=== PATIENT | female | born 2005 | race American Indian/Alaskan Native ===

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

== ENCOUNTER 2025-02-12 13:25 | Emergency (ER) | payer SELFPAY ==
[2025-02-12 16:04] VITALS: BP 124/74; PULSE 70
== END 2025-02-12 16:00 | disposition home or self-care (01) ==
LOC: DL.ED 13:25
DX: S05.12XA Contusion of eyeball and orbital tissues, left eye, initial encounter (principal); S05.02XA Injury of conjunctiva and corneal abrasion without foreign body, left eye, initial encounter; Z86.16 Personal history of COVID-19; Y04.8XXA Assault by other bodily force, initial encounter; Y93.89 Activity, other specified
CPT/HCPCS: 70486; 99283; 99284

== ENCOUNTER 2025-06-09 03:20 | Emergency (ER) | payer MEDICAID ==
[2025-06-09 02:56] LABS: BASOPHILS PERCENT AUTO 0.1 % (0.0-1.0); EOSINOPHILS PERCENT AUTO 1.0 % (1.0-3.0); LYMPHOCYTES PERCENT AUTO 29.8 % (20.5-50.1); MONOCYTES PERCENT AUTO 4.7 % (2-8); NEUTROPHILS PERCENT AUTO 64.4 % (42.2-75.2); PLATELET COUNT,PLT 361 10^3/uL (150-450); RED BLOOD CELL COUNT 5.01 10^6/uL (4.2-5.4); WHITE BLOOD CELL COUNT,WBC 12.2 10^3/uL (5.0-10.0)
[2025-06-09] MEDS: Lactated Ringers 1,000 ML IV ONE (03:04)
[2025-06-09 03:09] LABS: A/G RATIO 0.9; ALANINE AMINOTRANSFERASE,ALT 33 U/L (14-59); ASPARTATE AMNIOTRANSFERASE,AST 21 U/L (15-37); BILIRUBIN TOTAL 1.1 mg/dL (0.2-1.0); BLOOD UREA NITROGEN,BUN 10 mg/dL (7-18); CARBON DIOXIDE,CO2 18 mmol/L (21-32); CHLORIDE,CL 99 mmol/L (98-107); CREATININE 1.05 mg/dL (0.55-1.02); GLUCOSE RANDOM 147 mg/dL (70-99); POTASSIUM,K 3.0 mmol/L (3.5-5.1); PROTEIN TOTAL,TP 9.1 g/dL (6.4-8.2); SODIUM,NA 137 mmol/L (136-145)
[2025-06-09 03:10] LABS: ESTIMATED GFR 79 mL/min (>=60); ETHANOL BLOOD MEDICAL < 3 mg/dL (0)
[2025-06-09 04:06] LABS: APPEARANCE,URINE CLEAR (CLEAR); GLUCOSE,URINE NEGATIVE (NEGATIVE); OCCULT BLOOD,URINE TRACE-INTACT (NEGATIVE)
[2025-06-09 04:10] LABS: AMPHETAMINES,URINE NEGATIVE (NEGATIVE); BARBITURATES,URINE NEGATIVE (NEGATIVE); MDMA (ECSTASY), URINE NEGATIVE (NEGATIVE); METHAMPHETAMINES,URINE POSITIVE (NEGATIVE); OPIATES,URINE NEGATIVE (NEGATIVE); OXYCODONE,URINE NEGATIVE (NEGATIVE); PHENCYCLIDINE,URINE NEGATIVE (NEGATIVE); TCA,URINE NEGATIVE (NEGATIVE)
[2025-06-09 04:21] LABS: SQUAMOUS EPITHELIAL CELLS,UR FEW /HPF (NOT SEEN)
[2025-06-09 04:55] VITALS: BP 138/106; PULSE 87
[2025-06-09] MEDS: Potassium Chloride 10% 20 MEQ/15 ML Soln 15 ML UD Cup PO ONE (05:17)
== END 2025-06-09 05:30 | disposition home or self-care (01) ==
LOC: DL.ED 03:20
DX: F15.10 Other stimulant abuse, uncomplicated (principal); F10.10 Alcohol abuse, uncomplicated; Z86.16 Personal history of COVID-19
CPT/HCPCS: 36415; 80053; 80305-QW; 80307; 81001; 81025; 83735; 84484; 85025; 93005; 93010; 96360; 99284; 99284-25; A9270-GY; J7120

== ENCOUNTER 2025-07-05 11:46 | Emergency (ER) | payer MEDICAID ==
[2025-07-05] MEDS ORDERED: Sodium Chloride 0.9% 10 ML Syringe FLUSH PRN (11:53)
[2025-07-05 12:07] LABS: BASOPHILS PERCENT AUTO 0.1 % (0.0-1.0); EOSINOPHILS PERCENT AUTO 0.2 % (1.0-3.0); LYMPHOCYTES PERCENT AUTO 11.2 % (20.5-50.1); MONOCYTES PERCENT AUTO 5.7 % (2-8); NEUTROPHILS PERCENT AUTO 82.8 % (42.2-75.2); PLATELET COUNT,PLT 344 10^3/uL (150-450); RED BLOOD CELL COUNT 4.48 10^6/uL (4.2-5.4); WHITE BLOOD CELL COUNT,WBC 10.7 10^3/uL (5.0-10.0)
[2025-07-05] MEDS: Iopamidol 612 MG/ML 100 ML Bottle IVPUSH ONE (12:22)
[2025-07-05 12:25] LABS: A/G RATIO 1.0; ALANINE AMINOTRANSFERASE,ALT 50 U/L (14-59); ASPARTATE AMNIOTRANSFERASE,AST 37 U/L (15-37); BILIRUBIN TOTAL 0.5 mg/dL (0.2-1.0); BLOOD UREA NITROGEN,BUN 9 mg/dL (7-18); CARBON DIOXIDE,CO2 17 mmol/L (21-32); CHLORIDE,CL 103 mmol/L (98-107); CREATININE 0.96 mg/dL (0.55-1.02); EST CRCL DRUG DOSING (CG) 74.55 mL/min; GLUCOSE RANDOM 112 mg/dL (70-99); POTASSIUM,K 3.4 mmol/L (3.5-5.1); PROTEIN TOTAL,TP 7.3 g/dL (6.4-8.2); SODIUM,NA 139 mmol/L (136-145)
[2025-07-05] MEDS: Midazolam 1 MG/ML 2 ML SDV IVPUSH ONE (12:27)
[2025-07-05] MEDS: LORazepam 2 MG/ML SDV IVPUSH ONE (12:28)
[2025-07-05 12:29] LABS: ESTIMATED GFR 87 mL/min (>=60); ETHANOL BLOOD MEDICAL < 3 mg/dL (0)
[2025-07-05 12:30] LABS: LACTIC ACID 7.9 mmol/L (0.4-2.0)
[2025-07-05 13:52] LABS: APPEARANCE,URINE CLEAR (CLEAR); GLUCOSE,URINE NEGATIVE (NEGATIVE); OCCULT BLOOD,URINE LARGE (NEGATIVE)
[2025-07-05 13:55] LABS: AMPHETAMINES,URINE NEGATIVE (NEGATIVE); BARBITURATES,URINE NEGATIVE (NEGATIVE); MDMA (ECSTASY), URINE NEGATIVE (NEGATIVE); METHAMPHETAMINES,URINE POSITIVE (NEGATIVE); OPIATES,URINE NEGATIVE (NEGATIVE); OXYCODONE,URINE NEGATIVE (NEGATIVE); PHENCYCLIDINE,URINE NEGATIVE (NEGATIVE); TCA,URINE NEGATIVE (NEGATIVE)
[2025-07-05 14:03] LABS: EPITHELIAL CELLS,URINE MODERATE /HPF (NOT SEEN)
[2025-07-05 14:26] VITALS: BP 121/76; PULSE 116
== END 2025-07-05 14:22 | disposition home or self-care (01) ==
LOC: DL.ED 11:46
DX: R56.9 Unspecified convulsions (principal); Z86.16 Personal history of COVID-19
CPT/HCPCS: 36415; 70470; 80053; 80305; 80307; 81001; 81025; 83605; 83735; 85025; 93005; 96361; 96365; 99285; J1953; J7030; Q9967